=== PATIENT | male | born 1950 | race Caucasian/White ===

== ENCOUNTER 2020-08-04 14:54 | Inpatient (IN) | payer MEDICARE, MEDICAID, SELFPAY ==
[2020-08-04] VITALS (39 sets, daily range): BP systolic 94–124; BP diastolic 56–81; PULSE 84–90; RESP 20–33; TEMP 36.5–36.7; O2SAT 88–98; BMI 34.2
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
--- NOTE | 2020-08-04 16:25 | PC.NURSE ---
Pt arrives as direct admit from [facility]. Pt intubated and on vent , FIO2 at 85%. OG tube noted with brownish green drainage. Peripheral IVs noted in Left forearm and right forearm. Restraints on. Thompson patent and draining. Pt transferred to bed with maximum assist. Pt had propofol, fentanyl , levophed and NS infusing., IV tubings changed to compatible lines with our IV pumps.
[2020-08-04 16:37] LABS: ABG PCO2 35.3 mmHg (35-45); ABG PH Result 7.36 (7.35-7.45); Arterial Blood Gas Hematocrit 37.7 % (42-52); Blood Gas Allen Test Pos; Blood Gas Sample Type Arterial; Carboxyhemoglobin 0.8 %THgb (0.4-20.1); HCO3 ABG 19.8 mmol/L (22-26); HGB O2 Sat 96.9 % (95-100); Ionized Calcium Level - ABG 1.2 mmol/L (1.1-1.4); Oxygen Saturation ABG 98.7; Potassium Level - ABG 4.7 mmol/L (3.5-5.0); Total Hemoglobin 12.3 g/dL (14-18)
[2020-08-04 16:41] LABS: Alveolar-Arterial Oxygen Gradi 58.3 mmHg (5-10); Blood Gas Operator Identificat MONRO; Blood Gas Sample Site Brachial, right; Oxygen Device VENT
--- NOTE | 2020-08-04 17:30 | PC.NURSE ---
Levophed from [facility] titrated off and discarded. New IV started to Left posterior Forearm and left wrist. [facility] IVs: left anterior forearm and right forearm discontinued. Both cath tips intact, the left one had a kink. No redness or swelling noted at sites. Pt tolerated well.
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
[2020-08-04] MEDS: enoxaparin 120 mg/0.8 mL Syringe 115 MG SUBCUT (18:02)
[2020-08-04] MEDS: famotidine 20 mg/2 mL INJ IVP (18:02)
[2020-08-04] MEDS: propofol 1,000 MG/100 ML INJ 27.4 MG IV (18:09)
--- NOTE | 2020-08-04 18:15 | PC.NURSE ---
Fentanyl gtt from [facility] wasted.:167 mls. Witnessed by Lian Christiansen RN.
--- NOTE | 2020-08-04 18:30 | PC.NURSE ---
167 mL of fentanyl wasted.
--- NOTE | 2020-08-04 19:05 | PC.NURSE ---
Report given to ANGEL White. FIO2 decreased to 80%. Pt now on Versed, Propofol, Fentanyl gtt and Remdesivir infusing. Blood culture, MRSA and urine collected and sent to lab.
[2020-08-04] MEDS: ipratropium-albuterol 3 mL Neb INHALATION ×2 (20:16→23:55)
[2020-08-04] MEDS: LORazepam 2 mg/mL INJ 1 mL IVP ×2 (20:24→23:17)
[2020-08-04 20:38] LABS: Glucose Point of Care 290 mg/dL (70-110)
[2020-08-04] MEDS: propofol 1,000 MG/100 ML INJ 34.2 MG IV (21:05)
--- NOTE | 2020-08-04 21:26 | PC.NURSE ---
Assessment: 2000: [facility] vent settings PC-AC Mode, FiO2=80%, RR=14, Peep=10, ETT size 8, and 26@Lip. Patient tachypneic with rate in 30s and using accessory muscles; fighting the vent. Increased patient sedation but patient continue to exhibit tachynea and continues to fight the vent; gave an additional dose of ativan IVP which appears to help settle the patient. Will continue monitor to closely.
[2020-08-05] VITALS (76 sets, daily range): BP systolic 87–123; BP diastolic 50–66; PULSE 78–98; RESP 20–39; TEMP 36.7–37; O2SAT 78–97; BMI 34.2
[2020-08-05] MEDS: propofol 1,000 MG/100 ML INJ 34.2 MG IV ×5 (00:17→18:58)
[2020-08-05 03:10] LABS: D Dimer 3.36 ug/mIFEU (0-0.59)
[2020-08-05 03:20] LABS: Basophils % 0.1 %; Hematocrit 37.6 % (42.0-52.0); Hemoglobin 11.7 g/dL (11.7-16.6); Lymphocytes % 12.5 %; Mean Corpuscular HGB Conc 31.1 g/dL (30.0-36.0); Mean Corpuscular Hemoglobin 27.7 pg (28.0-34.0); Mean Corpuscular Volume 89.1 fL (80-94); Mean Platelet Volume 10.5 fL (7.4-10.4); Monocytes # 0.7 10^3/uL (0.2-0.9); Monocytes % 4.5 %; Neutrophils # 12.99 10^3/uL (1.8-7.7); Neutrophils % 82.2 %; Nucleated Red Blood Cells % 0.1 %; Platelet Count 110 10^3/cmm (130-400); Red Blood Count 4.22 10^6/uL (4.1-5.3); Red Cell Distribution Width 17.2 % (12.1-15.1); White Blood Count 15.8 10^3/uL (4.0-10.0)
[2020-08-05 03:24] LABS: Alanine Aminotransferase 15 U/L (0-41); Albumin Level 2.4 g/dL (3.5-5.2); Alkaline Phosphatase 81 IU/L (40-130); Anion Gap 16.2 (5-19); Aspartate Amino Transferase 57 U/L (0-40); Blood Urea Nitrogen 64 mg/dL (8-23); Calcium 8.2 mg/dL (8.5-10.5); Carbon Dioxide 18 mmol/L (22-29); Chloride 115 mmol/L (98-107); Globulin 3.3 g/dL (1.3-4.6); Glomerular Filtration Rate 60.2 mL/min (90-130); Glucose 381 mg/dL (65-115); Osmolality Calculated 332 mOsm/kg (285-295); Potassium 5.2 mmol/L (3.5-5.1); Sodium 144 mmol/L (136-145); Total Bilirubin 0.4 mg/dL (0.15-1.2); Total Protein 5.7 g/dL (6.6-8.7)
[2020-08-05 03:25] LABS: C Reactive Protein 82.6 mg/L (0.0-4.9)
[2020-08-05] MEDS: propofol 1,000 MG/100 ML INJ 27.4 MG IV ×2 (03:28→06:51)
[2020-08-05] MEDS: enoxaparin 120 mg/0.8 mL Syringe 115 MG SUBCUT ×2 (03:37→15:49)
[2020-08-05] MEDS: ipratropium-albuterol 3 mL Neb INHALATION ×4 (03:50→16:09)
[2020-08-05 03:52] LABS: Creatine Phosphokinase 207 U/L (39-308)
[2020-08-05 04:31] LABS: ABG PH Result 7.36 (7.35-7.45); Arterial Blood Gas Hematocrit 37.7 % (42-52); Base Excess ABG -5.2 mmol/L (-2.0-2.0); Blood Gas Operator Identificat JB; Blood Gas Sample Site Brachial, right; Blood Gas Sample Type Arterial; HCO3 ABG 19.6 mmol/L (22-26); Oxygen Device VENT; PO2 ABG 57.3 mmHg (80.0-100.0)
[2020-08-05] MEDS: famotidine 20 mg/2 mL INJ IVP ×2 (05:37→17:35)
--- NOTE | 2020-08-05 06:00 | XRR_ITS ---
PROCEDURE INFORMATION: Exam: XR Chest, 1 View Exam date and time: 08/05/2020 5:16 AM Age: 70 years old Clinical indication: Device placement; Other: Og placement; Additional info: Ogt placement TECHNIQUE: Imaging protocol: XR of the chest Views: 1 view. COMPARISON: No relevant prior studies available. FINDINGS: Tubes, catheters and devices: An endotracheal tube and orogastric tube projects in satisfactory position. Lungs: There are bilateral interstitial pulmonary infiltrates with patchy consolidation in the medial left base. These findings are consistent with pneumonia possibly viral in nature. Pleural space: Unremarkable. No pleural effusion. No pneumothorax. Heart/Mediastinum: Heart is normal in size for the AP projection. Bones/joints: Unremarkable. XR/XR chest 1V portable [id number] IMPRESSION: 1. Satisfactory endotracheal tube and orogastric tube placement. 2. Bilateral interstitial pulmonary infiltrates consistent with pneumonia possibly viral in nature.
[2020-08-05] MEDS: clopidogrel 75 mg Tablet OG-TUBE (09:15)
[2020-08-05] MEDS: LORazepam 2 mg/mL INJ 1 mL IVP ×3 (11:34→17:35)
[2020-08-05 13:21] LABS: ABG PCO2 36.4 mmHg (35-45); ABG PH Result 7.37 (7.35-7.45); Base Excess ABG -3.9 mmol/L (-2.0-2.0); HCO3 ABG 20.9 mmol/L (22-26); PO2 ABG 53.3 mmHg (80.0-100.0)
[2020-08-05 13:22] LABS: Oxygen Device VENT
[2020-08-05 13:23] LABS: Blood Gas Vent Mode PC
[2020-08-05 13:24] LABS: Arterial Blood Gas Hematocrit 37.7 % (42-52)
[2020-08-05] MEDS: dexamethasone 4 mg/mL INJ 6 MG IVP (13:31)
[2020-08-05 14:07] LABS: Blood Gas Allen Test Pos; Blood Gas Sample Site Radial, left; Blood Gas Sample Type Arterial
[2020-08-05 14:52] LABS: Glucose Point of Care 297 mg/dL (70-110)
--- NOTE | 2020-08-05 15:16 | P.PN_ITS ---
Subjective Subjective: Interval history: Intubated, sedated. Restless earlier, currently doing better. Vitals/I&O/Wt Last Vital Signs Temp 98.2 F 08/05/20 04:00 Pulse 87 08/05/20 11:26 Resp 20 H 08/05/20 11:26 BP 109/60 08/05/20 04:00 Pulse Ox 93 08/05/20 11:26 08/05/20 08/05/20 08/05/20 06:59 14:59 22:59 Intake Total 424.286 / 524.353 283.093 / 283.093 Output Total 950 / 1700 400 / 400 Balance -525.714 / -1175.647 -116.907 / -116.907 Weight last 48 hrs Weight 114.668 kg Weight 114.668 kg Physical Exam Const: COMMON NORMALS: no acute distress and patient oriented x3 NUTRITIONAL APPEARANCE: obese OTHER: Sedated. Intubated. HENMT: COMMON NORMALS: oropharynx normal Neck/C-Spine: COMMON NORMALS: no JVD OTHER: Difficult to assess for JVD due to body habitus, but no obvious JVD. Resp: COMMON NORMALS: normal respiratory effort AUSCULTATION: no rhonchi (Earlier reported rhonchi, currently doing better.) Cardio: COMMON NORMALS: no JVD, regular rhythm, S1 normal heart sound present, S2 normal heart sound present and No murmurs present (Cardio) RHYTHM: regular rhythm HEART SOUNDS: S1 normal heart sound present and S2 normal heart sound present GI: COMMON NORMALS: Normal to inspection, nondistended, normoactive bowel sounds present and Soft to palpation PALPATION: Yes Soft to palpation Extremity: COMMON NORMALS: no joint enlargement and no pedal edema Neuro: COMMON NORMALS: patient oriented x3 and moves all extremities Skin: COMMON NORMALS: no rashes or lesions noted GENERAL SKIN EXAM: no rashes or lesions noted OTHER: Dry skin patches over elbows. Data : 08/05/20 02:43 08/05/20 02:43 Micro: Microbiology 08/05/20 08:30 MRSA Culture - Final Nose 08/05/20 11:30 Blood Culture - Preliminary Blood SPECIMEN COLLECTED 08/05/20 08:30 Legionella Urinary Antigen - Final Urine,Clean Catch Bacterial Antigens - Final 08/05/20 08:30 Blood Culture - Preliminary Blood SPECIMEN COLLECTED 08/05/20 03:50 Gram Stain - Final Sputum - Endotracheal Tube Aspirate A&P Assessment and plan (1) Acute respiratory failure due to COVID-19: Saturations often hypoxemic on 75% FiO2, PO2 53.3 on morning ABG. FiO2 temporarily increased to 100%, maintaining saturation 93%. Appears to be n egative balance from yesterday 1290 mL. Not requiring pressors. Continue remdesivir, Decadron. For some reason looks like Levaquin order had fallen off. Will restart. Was receiving his every 48 hours at [facility], heart, renal function appears improved, will continue every 24 hours at this time. MRSA PCR is negative. GPC in sputum culture. Urine bacterial antigens negative. Check rapid flu. Quite a bit is suctioned out today. Continue pulmonary toilet. Increase sedation as he is overbreathing the vent. Pressor if needed to support BP. Nebulizer treatments. Noted intermittent positional airleak. If recurrent/persistent, ETT may need to be exchanged. Somewhat restless this morning, however, this improved with increase sedation. Currently sedation with fentanyl, peripheral, Versed. Famotidine prophylaxis. [facility]listed at [facility] for possible nitric oxide or flolan therapy. No ECMO available. [facility] not taking transfers. Status: Acute (2) Hypotension: Monitor blood pressures. Weaned off Levophed for now. Status: Acute (3) Acute kidney injury: Creatinine appears stabilized at 1.2. Initially acute kidney injury at [facility] creatinine of 2. Monitor blood pressures. Avoid hypotension. Avoid nephrotoxic medications. Status: Acute (4) DM type 2 (diabetes mellitus, type 2): Hold his oral hypoglycemics. Sliding scale insulin. Target glucose 140- 180. Status: Acute (5) CAD (coronary artery disease): History of stent for which he takes Plavix. Reported not taking aspirin from [facility]. Stent reported around March at Hold off beta-eugenio for now due to hypotension. Add statin. Status: Acute (6) HTN (hypertension): Previously on amlodipine, beta-eugenio. Will hold. Monitor blood pressures. Hypotension improved. Status: Acute Additional A&P Information Anxiety/depression Patient has no known contacts apart from a friend named Sandro Lacey [phone] who is his neighbor. [facility] pt has 2 sons, but they are not in contact. Giv es contact of Chantell Morgan his a niece to be called at [phone]. He called Chantell. Brother in March. He has 2 sisters. Sister Sandra Solo [phone]. Son Dylan near [facility]. Ctontinue treatment for severe covid 19 pneumonia, hypoxic Attestations Medical Necessity Statement*: Continue admission for assessment and management of hypoxic respiratory failure, severe COVID 19 pneumonia. Coding Level of Care Code Acute Lumber Carrier for [facility] Fwd Exam Comprehensive Diagnoses Acute respiratory failure due to COVID-19 U07.1; J96.00 Hypotension I95.9 Acute kidney injury N17.9 DM type 2 (diabetes mellitus, type 2) E11.9 CAD (coronary artery disease) I25.10 HTN (hypertension) I10
[2020-08-05] MEDS: levofloxacin-dextrose 5 % 750 MG/150 ML PREMIX 100 MG IV (15:49)
[2020-08-05 16:07] LABS: Potassium 4.5 mmol/L (3.5-5.1)
[2020-08-05 18:05] LABS: ABG PCO2 44.8 mmHg (35-45); ABG PH Result 7.28 (7.35-7.45); Arterial Blood Gas Hematocrit 37.6 % (42-52); Base Excess ABG -5.9 mmol/L (-2.0-2.0); Blood Gas Sample Site Brachial, right; Blood Gas Sample Type Arterial; HCO3 ABG 20.8 mmol/L (22-26); Oxygen Device VENT; PO2 ABG 61.1 mmHg (80.0-100.0)
--- NOTE | 2020-08-05 19:29 | P.TS_ITS ---
Transfer Summary Providers Date of Admission: 08/04/20 14:54 Date of Discharge: 08/05/20 Attending Provider at Admission: Leobardo Zheng Attending Provider at Transfer: Leobardo Zheng Anticipated Date of Transfer: Anticipated date of transfer: 08/05/20 Receiving Facility & Provider: Receiving Provider: [] Receiving facility: [] Diagnoses at Discharge Discharge Diagnosis (1) Acute respiratory failure due to COVID-19: Status: Acute (2) Hypotension: Status: Acute (3) Acute kidney injury: Status: Acute (4) DM type 2 (diabetes mellitus, type 2): Status: Acute (5) CAD (coronary artery disease): Status: Acute (6) HTN (hypertension): Status: Acute (7) Elevated liver enzymes: Status: Acute (8) ARDS (adult respiratory distress syndrome): Status: Acute Reason for Visit Reason for Visit: [facility] Hospital Course Hospital Course 70-year-old gentleman with history of CAD, stenting in March at [facility], DM 2, HTN, HLD was transferred to [facility] in [place] viral ICU after 2-day stay at [facility] where he was admitted on 08/02 and treated for severe COVID-19 infection, without improvement despite treatment with remdesivir, Decadron, empiric Levaquin, prophylactic Lovenox, oxygen support, with progressive hypoxia, despite nonrebreather, BiPAP support. On presentation better with noted leukocytosis 12.6, subsequently with improvement, hemoglobin 14.2-12.7, platelets 247-210. Lactic acid initially as high as 9, improved to 2.7. CRP 77. D-dimer 1600. Positive COVID-19 RNA. Initially with noted acute kidney injury, creatinine 2, with improvement in creatinine down to 1.2. BUN 101. AST 140. Troponin 0.069. Chest x-ray with bilateral patchy pneumonia. As he wished to be full code per discussion with physician over [facility], he was intubated, initially requiring under percent FiO2, PEEP 20. Due to lack of ICU level care at [facility] was transferred to [facility] in [place]. After intubation transiently required Levophed support. Sedated with fentanyl, propofol. On arrival here was able to wean off, spontaneously maintain blood pressures. PEEP was decreased down to 10, tidal volume decreased with target 6 mL/kg. Sedation increased with additional Versed. His oxygenation initially improved, with FiO2 down to 75%. This morning PO2 noted 53. FiO2 increased to 100%. Transient minimal air leak noted may have been positional and improved with balloon inflation and repositioning. Due to noted overbreathing the ventilator, RR 33 on PC/AC, sedation was further escalated, with improvement in respiratory rate down to 20. With improvement in PO2 on ABG to 61. Respiratory rate increased somewhat to 24 due to increased PaCO2 from 36.4-44.8, pH down from 7.37-7.28. Levophed ordered in case needed to maintain MAP above 50. Here so far blood culture is negative. Has been producing quite a bit of phlegm today. Sputum culture with gram-positive cocci in pairs, chains and clusters. He is continued empirically on Levaquin. MRSA PCR negative. Urine Legionella, GBS, Haemophilus, strep pneumo, meningococcus antigens negative. He is maintained on therapeutic anticoagulation due to suspected Covid 19 coagulopathy and high risk of VTE. D-dimer today was 3.36. CRP is 82.6. He is continued on remdesivir, Decadron. Renal function remained stable, creatinine 1.2. AST 57. Chest x-ray with persistent bilateral patchy infiltrates. He is in negative balance here -950mL. With persistent hypoxia, lack of good response to treatment so far, high risk of poor outcome additional therapeutic options were considered, including nitric oxide or epoprostenol given his expressed wishes for more aggressive assessment and treatment as relayed from [facility] he was kindly accepted for additional assessment and care at [facility] after discussion with Dr Siddiqui where he is taken by air [facility] tonight. He is also approved for transfer by our rubber press operator, and transfer is also discussed with patient's designated contact named by patient per documentation at [facility] Mr. Sandro Lacey [phone] (his friend and neighbor) who states that this would be in accordance with his wishes. Mr. Lacey tells us the patient is not and is estranged from his sons, and is sometimes in contact with his niece Chantell Morgan [phone]. His niece states they are intermittently in touch and have good relations. Her mother Sandra Solo is patient's sister [phone]. His niece also tells us out of his two sons he is not in touch with his son who lives nearby, however, reportedly now may be intermittently in touch with his son Dylan who lives near [place]. Please see notes, imaging, and labs for details. Call with any questions. Physical Exam Const: COMMON NORMALS: no acute distress and patient oriented x3 NUTRITIONAL APPEARANCE: obese OTHER: Sedated. Intubated. HENMT: COMMON NORMALS: oropharynx normal Neck/C-Spine: COMMON NORMALS: no JVD OTHER: Difficult to assess for JVD due to body habitus, but no obvious JVD. Resp: COMMON NORMALS: normal respiratory effort AUSCULTATION: no rhonchi (Earlier reported rhonchi, currently doing better.) Cardio: COMMON NORMALS: no JVD, regular rhythm, S1 normal heart sound present, S2 normal heart sound present and No murmurs present (Cardio) RHYTHM: regular rhythm HEART SOUNDS: S1 normal heart sound present and S2 normal heart sound present GI: COMMON NORMALS: Normal to inspection, nondistended, normoactive bowel sounds present and Soft to palpation PALPATION: Yes Soft to palpation Extremity: COMMON NORMALS: no joint enlargement and no pedal edema Neuro: COMMON NORMALS: patient oriented x3 and moves all extremities Skin: COMMON NORMALS: no rashes or lesions noted GENERAL SKIN EXAM: no rashes or lesions noted OTHER: Dry skin patches over elbows. TS Data Data Completed and Pending: Completed Studies During Hospitalization Category Date Time Status XR chest 1V lisa ble [id number] Routine Exams 08/05/20 06:00 Completed Pending at discharge Category Date Time Status Blood Culture Rou wilson Lab 08/05/20 08:30 Results Blood Culture Rou wilson [facility] 08/05/20 11:30 Results C Reactive Protei n AM LABS Lab 08/06/20 04:00 Ordered C Reactive Protei n AM LABS Lab 08/07/20 04:00 Ordered Complete Blood Co unt w/Auto AM LABS Lab 08/06/20 04:00 Ordered Complete Blood Co unt w/Auto AM LABS Lab 08/07/20 04:00 Ordered Comprehensive Met abolic Panel AM LA BS Lab 08/06/20 04:00 Ordered Comprehensive Met abolic Panel AM LA BS Lab 08/07/20 04:00 Ordered D Dimer AM LABS Lab 08/06/20 04:00 Ordered D Dimer AM LABS Lab 08/07/20 04:00 Ordered Influenza A&B by IFA Routine Lab 08/05/20 15:00 Ordered Sputum Culture an d Gram Stain Routi ne Lab 08/05/20 03:50 Results Labs from last 24 hours 08/05/20 08/05/20 08/05/20 17:53 15:00 14:49 WBC RBC Hgb Hct MCV MCH MCHC RDW Plt Count MPV Neut % (Auto) Lymph % (Auto) [place] % (Auto) Eos % (Auto) Baso % (Auto) Neut # (Auto) Lymph # (Auto) [place] # (Auto) Eos # (Auto) Baso # (Auto) Nucleated RBC % (a uto) Nucleated RBCs # D-Dimer Specimen Type Arterial Sample Site Brachial, right ABG pH 7.28 L ABG pCO2 44.8 ABG pO2 61.1 L ABG HCO3 20.8 L ABG Base Excess -5.9 L Eber Test N/a Hematocrit 37.6 L Respiration Rate O2 Delivery Device Vent Vent Mode FiO2 100.0 Tidal Volume 0.50 PEEP 10.0 Food Service Sales Representatives ID [email or web address] Sodium Potassium 4.5 Chloride Carbon Dioxide Anion Gap BUN Creatinine GFR Calculation Glucose POC Glucose 297 Calculated Osmolal ity Calcium Total Bilirubin AST ALT Alkaline Phosphata se Creatine Kinase C-Reactive Protein Total Protein Albumin Globulin 08/05/20 08/05/20 08/05/20 10:23 04:18 02:43 WBC RBC Hgb Hct MCV MCH MCHC RDW Plt Count MPV Neut % (Auto) Lymph % (Auto) [place] % (Auto) Eos % (Auto) Baso % (Auto) Neut # (Auto) Lymph # (Auto) [place] # (Auto) Eos # (Auto) Baso # (Auto) Nucleated RBC % (a uto) Nucleated RBCs # D-Dimer 3.36 H Specimen Type Arterial Arterial Sample Site Radial, left Brachial, right ABG pH 7.37 7.36 ABG pCO2 36.4 35.0 ABG pO2 53.3 L 57.3 L ABG HCO3 20.9 L 19.6 L ABG Base Excess -3.9 L -5.2 L Eber Test Pos N/a Hematocrit 37.7 L 37.7 L Respiration Rate 14.0 O2 Delivery Device Vent Vent Vent Mode Pc FiO2 75.0 70.0 Tidal Volume PEEP 10.0 Food Service Sales Representatives ID lindseyn Lee Sodium Potassium Chloride Carbon Dioxide Anion Gap BUN Creatinine GFR Calculation Glucose POC Glucose Calculated Osmolal ity Calcium Total Bilirubin AST ALT Alkaline Phosphata se Creatine Kinase C-Reactive Protein Total Protein Albumin Globulin 08/05/20 08/05/20 08/05/20 02:43 02:43 02:43 WBC 15.8 H RBC 4.22 Hgb 11.7 Hct 37.6 L MCV 89.1 MCH 27.7 L MCHC 31.1 RDW 17.2 H Plt Count 110 L MPV 10.5 H Neut % (Auto) 82.2 Lymph % (Auto) 12.5 [place] % (Auto) 4.5 Eos % (Auto) 0.0 Baso % (Auto) 0.1 Neut # (Auto) 12.99 H Lymph # (Auto) 2.0 [place] # (Auto) 0.7 Eos # (Auto) 0.0 Baso # (Auto) 0.0 Nucleated RBC % (a uto) 0.1 Nucleated RBCs # 0.0 D-Dimer Specimen Type Sample Site ABG pH ABG pCO2 ABG pO2 ABG HCO3 ABG Base Excess Eber Test Hematocrit Respiration Rate O2 Delivery Device Vent Mode FiO2 Tidal Volume PEEP Food Service Sales Representatives ID Sodium 144 Potassium 5.2 H Chloride 115 H Carbon Dioxide 18 L Anion Gap 16.2 BUN 64 H Creatinine 1.2 GFR Calculation 60.2 L Glucose 381 H POC Glucose Calculated Osmolal ity 332 H Calcium 8.2 L Total Bilirubin 0.4 AST 57 H ALT 15 Alkaline Phosphata se 81 Creatine Kinase C-Reactive Protein 82.6 H Total Protein 5.7 L Albumin 2.4 L Globulin 3.3 08/05/20 08/04/20 02:43 20:35 WBC RBC Hgb Hct MCV MCH MCHC RDW Plt Count MPV Neut % (Auto) Lymph % (Auto) [place] % (Auto) Eos % (Auto) Baso % (Auto) Neut # (Auto) Lymph # (Auto) [place] # (Auto) Eos # (Auto) Baso # (Auto) Nucleated RBC % (a uto) Nucleated RBCs # D-Dimer Specimen Type Sample Site ABG pH ABG pCO2 ABG pO2 ABG HCO3 ABG Base Excess Eber Test Hematocrit Respiration Rate O2 Delivery Device Vent Mode FiO2 Tidal Volume PEEP Food Service Sales Representatives ID Sodium Potassium Chloride Carbon Dioxide Anion Gap BUN Creatinine GFR Calculation Glucose POC Glucose 290 Calculated Osmolal ity Calcium Total Bilirubin AST ALT Alkaline Phosphata se Creatine Kinase 207 C-Reactive Protein Total Protein Albumin Globulin Vitals: Last Vital Signs Temp 98.1 F 08/05/20 17:45 Pulse 87 08/05/20 18:00 Resp 24 H 08/05/20 17:48 BP 87/50 08/05/20 18:00 Pulse Ox 90 08/05/20 18:00 TS Medications Medications Home Medications amlodipine 5 mg PO DAILY 08/05/20 [History Confirmed 08/05/20] amlodipine 10 mg PO DAILY 08/05/20 [History Confirmed 08/05/20] bupropion HCl 300 mg PO DAILY 08/05/20 [History Confirmed 08/05/20] clopidogrel 75 mg PO DAILY 08/05/20 [History Confirmed 08/05/20] dapagliflozin [Farxiga] 10 mg PO DAILY 08/05/20 [History Confirmed 08/05/20] famotidine 20 mg PO BID 08/05/20 [History Confirmed 08/05/20] gabapentin 600 mg PO BID 08/05/20 [History Confirmed 08/05/20] hydrochlorothiazide 25 mg PO DAILY 08/05/20 [History Confirmed 08/05/20] insulin degludec [Tresiba FlexTouch U-200] See Rx Instructions .ROUTE .COMPLEX 08/05/20 [History Confirmed 08/05/20] liraglutide [Victoza 3-Tommy] 1.8 mg SUBCUT DAILY 08/05/20 [History Confirmed 08/05/20] lisinopril 40 mg PO DAILY 08/05/20 [History Confirmed 08/05/20] metformin 500 mg PO Q12H 08/05/20 [History Confirmed 08/05/20] metoprolol succinate 50 mg PO DAILY 08/05/20 [History Confirmed 08/05/20] omeprazole 40 mg PO DAILY 08/05/20 [History Confirmed 08/05/20] ropinirole 1 mg PO BID 08/05/20 [History Confirmed 08/05/20] rosuvastatin 20 mg PO DAILY 08/05/20 [History Confirmed 08/05/20] sitagliptin [Januvia] 100 mg PO DAILY 08/05/20 [History Confirmed 08/05/20] tizanidine 4 mg PO Q8H PRN 08/05/20 [History Confirmed 08/05/20] Active Medications Albuterol/Ipratropium (Ipratropium-Albuterol 3 Ml Neb) 3 ml INHALATION Q4H.RESPIRATORY SANDIE Last Admin: 08/05/20 16:09 Dose: 3 ml Documented by: Atorvastatin Calcium (Atorvastatin 40 Mg Tablet) 40 mg OG-TUBE BEDTIME SANDIE Clopidogrel Bisulfate (Clopidogrel 75 Mg Tablet) 75 mg OG-TUBE DAILY SANDIE Last Admin: 08/05/20 09:15 Dose: 75 mg Documented by: Dexamethasone (Dexamethasone 4 Mg/Ml Inj) 6 mg IVP Q24H SANDIE Last Admin: 08/05/20 13:31 Dose: 6 mg Documented by: Dextrose (Dextrose 50% Syringe 50 Ml) 25 ml IVP ONCE PRN; Protocol PRN Reason: hypoglycemia protocol Dextrose (Dextrose 50% Syringe 50 Ml) 50 ml IVP PRN PRN; Protocol PRN Reason: hypoglycemia protocol Enoxaparin Sodium (Enoxaparin 120 Mg/0.8 Ml Syringe) 115 mg SUBCUT Q12H SANDIE Last Admin: 08/05/20 15:49 Dose: 115 mg Documented by: Famotidine (Famotidine 20 Mg/2 Ml Inj) 20 mg IVP Q12H SANDIE Last Admin: 08/05/20 17:35 Dose: 20 mg Documented by: Glucagon (Glucagon 1 Mg/Ml Inj 1 Ml) 1 mg IM ONCE PRN; Protocol PRN Reason: Adult Acute Hypoglycemia Prot. Norepinephrine Bitartrate 4 mg (/ Dextrose) 254 mls @ 0 mls/hr IV .Q0M SANDIE; Protocol Fentanyl 1,000 mcg/ Sodium (Chloride) 100 mls @ 0 mls/hr IV .Q0M SANDIE; Protocol Last Admin: 08/05/20 18:54 Dose: 100 mcg/hr, 10 mls/hr Documented by: Dextrose (D5w) 500 mls @ 100 mls/hr IV ONCE PRN; Protocol PRN Reason: Adult Acute Hypoglycemia Prot remdesivir (EUA) 100 mg/ (Sodium Chloride) 100 mls @ 100 mls/hr IV Q24H SANDIE Stop: 08/06/20 18:59 Last Admin: 08/05/20 17:52 Dose: 100 mls/hr Documented by: Midazolam HCl 100 mg/ Sodium (Chloride) 100 mls @ 0 mls/hr IV .Q0M SANDIE; Protocol Last Admin: 08/05/20 18:59 Dose: 5 mg/hr, 5 mls/hr Documented by: Propofol (Diprivan) 1,000 mg in 100 mls @ 0 mls/hr IV .Q0M SANDIE; Protocol Last Admin: 08/05/20 18:58 Dose: 50 mcg/kg/min, 34.2 mls/hr Documented by: Levofloxacin/Dextrose (Levaquin-D5w) 750 mg in 150 mls @ 100 mls/hr IV Q24H SANDIE; Protocol Last Infusion: 08/05/20 17:36 Dose: Infused Documented by: Insulin Aspart (Insulin Aspart 100 Unit/1 Ml) 0 unit SUBCUT WM&BEDTIME [facility]; Protocol Last Admin: 08/05/20 17:35 Dose: 8 unit Documented by: Lorazepam (Lorazepam 2 Mg/Ml Inj 1 Ml) 2 mg IVP Q2H PRN PRN Reason: SEDATION Last Admin: 08/05/20 17:35 Dose: 2 mg Documented by: Morphine Sulfate (Morphine 4 Mg/Ml Sdv 1 Ml) 2 mg IVP Q4H PRN PRN Reason: SEVERE PAIN Discharge Plan Discharge Patient Disposition: Xfer Short-Term Hosp Condition: Stable Prescriptions: No Action Tresiba FlexTouch U-200 200 unit/mL (3 mL) insulin pen See Rx Instructions .ROUTE .COMPLEX RF: 0 metformin 500 mg tablet 500 mg PO Q12H RF: 0 gabapentin 600 mg tablet 600 mg PO BID RF: 0 ropinirole 1 mg tablet 1 mg PO BID RF: 0 tizanidine 4 mg tablet 4 mg PO Q8H PRN (Reason: muscle spasms) RF: 0 metoprolol succinate 50 mg tablet extended release 24 hr 50 mg PO DAILY RF: 0 clopidogrel 75 mg tablet 75 mg PO DAILY RF: 0 amlodipine 5 mg tablet 5 mg PO DAILY RF: 0 omeprazole 40 mg capsule,delayed release(DR/EC) 40 mg PO DAILY RF: 0 famotidine 20 mg tablet 20 mg PO BID RF: 0 amlodipine 10 mg tablet 10 mg PO DAILY RF: 0 hydrochlorothiazide 25 mg tablet 25 mg PO DAILY RF: 0 lisinopril 40 mg tablet 40 mg PO DAILY RF: 0 rosuvastatin 20 mg tablet 20 mg PO DAILY RF: 0 bupropion HCl 300 mg tablet extended release 24 hr 300 mg PO DAILY RF: 0 Januvia 100 mg tablet 100 mg PO DAILY RF: 0 Victoza 3-Tommy 0.6 mg/0.1 mL (18 mg/3 mL) pen injector 1.8 mg SUBCUT DAILY RF: 0 Farxiga 10 mg tablet 10 mg PO DAILY RF: 0 Transfer Attestations Time Spent in Transfer Care*: greater than 30 min Quality Metrics Clinical Quality Measures: During this hospital stay, did patient experience: None Coding Level of Care Code Acute Lawyer for [facility] Fwd Diagnoses Acute respiratory failure due to COVID-19 U07.1; J96.00 Hypotension I95.9 Acute kidney injury N17.9 DM type 2 (diabetes mellitus, type 2) E11.9 CAD (coronary artery disease) I25.10 HTN (hypertension) I10 Elevated liver enzymes R74.8 ARDS (adult respiratory distress syndrome) J80
--- NOTE | 2020-08-05 20:50 | PC.NURSE ---
1930: Patient left with stretcher accompanied by [employer] crew. Pt was sedated but hemodynamically stable. Levophed was started before they left as pt blood pressure was trending down. Paperwork were handled by doug ORTIZ and was personally handed by doug ORTIZ to [employer] crew
--- NOTE | 2020-08-05 21:28 | PC.NURSE ---
Addendum entered by Rica Patricio RN 08/05/20 23:29: Witnessed 60 mL of Fentanyl, and 110mL of Versed completed by Christopher Pratt RN. Original Note: Wasted 60ml of Fentanyl and 110ml of versed on this patient post discharge. Waste witnessed by Francia Patricio RN.
--- NOTE | 2020-08-06 07:06 | PC.NURSE ---
DISCHARGED 08/05/20 @1900. NEEDED TO COMPLETE DISCHARGE. TRANSFER TO [facility] BY [facility].
== END 2020-08-05 19:00 | disposition short-term general hospital (02) | DRG 208 ==
PROVIDERS: Admitting Provider Internal Medicine; Visit Provider Internal Medicine
DX: U07.1 COVID-19 (principal); J12.89 Other viral pneumonia; J96.21 Acute and chronic respiratory failure with hypoxia; N17.9 Acute kidney failure, unspecified; E11.9 Type 2 diabetes mellitus without complications; I10 Essential (primary) hypertension; I25.10 Atherosclerotic heart disease of native coronary artery without angina pectoris; Z95.5 Presence of coronary angioplasty implant and graft; E78.5 Hyperlipidemia, unspecified; F41.8 Other specified anxiety disorders; E86.0 Dehydration; Z79.02 Long term (current) use of antithrombotics/antiplatelets; E66.9 Obesity, unspecified; Z68.34 Body mass index [BMI] 34.0-34.9, adult; I95.9 Hypotension, unspecified; Z79.4 Long term (current) use of insulin; R74.8 Abnormal levels of other serum enzymes
CPT/HCPCS: 12345; 36415; 36416; 36600; 71045; 80051; 80053; 82330; 82550; 82803; 82805; 82962; 83605; 84132; 85025; 85378; 86140; 86403; 87040; 87070; 87205; 87449; 87641; 94002; 94003; 94640; 94799; 96372; 96375; J1100; J1650; J1815; J1956; J2060; J2250; J2704; J3010; J3490